=== PATIENT | female | born 1995 | race Two or more races ===

== ENCOUNTER → 2019-09-17 | Emergency (ER) | payer OTHER ==
[~2019-09-17] VITALS: Ht 165.1 cm; Wt 65.8 kg
[~2019-09-17] MED LIST: ACETAMINOPHEN/CODEINE#3 (300/30mg) TAB PO ONE
[2019-09-17 02:27] VITALS: BP 118/74
== END | disposition home or self-care (01) ==
LOC: ER 02:19
DX: L02.212 Cutaneous abscess of back [any part, except buttock and flank] (principal)